=== PATIENT | female | born 1965 | race Caucasian/White ===

== ENCOUNTER 2021-12-26 07:33 | Emergency (ER) | payer OTHER, SELFPAY ==
[2021-12-26 07:44] VITALS: BP 138/88; PULSE 111; RESP 16; TEMP 36.2; O2SAT 95
[2021-12-26 08:14] VITALS: BP 138/88; PULSE 111; RESP 16; TEMP 36.2; O2SAT 95
[2021-12-26 08:36] LABS: SARS-CoV-2 RNA PCR Negative (Negative)
--- NOTE | 2021-12-26 08:48 | ED.URI ---
HPI - URI/Sore Throat General Chief Complaint: Upper Respiratory Infection Stated Complaint: DOESN'T FEEL GOOD SORE THROAT Source: patient and RN notes reviewed Mode of arrival: ambulatory Limitations: no limitations History of Present Illness MD elicited complaint: fever and sore throat Onset (ago): day(s) (3) Consistency: constant Severity: moderate Exacerbating factors: swallowing Relieving factors: nothing Associated symptoms: fever, chills, nausea, vomiting and diarrhea Related Data Home Medications Medication Instructions Recorded Confirmed albuterol sulfate 3 mg CONTINUOUS NEBULIZATION Q1-4H 12/26/21 12/26/21 PRN brimonidine 2 drp EACH EYE DAILY 12/26/21 12/26/21 buspirone 30 mg PO HS 12/26/21 12/26/21 cyclobenzaprine 10 mg PO TID 12/26/21 12/26/21 fluconazole 150 mg PO ONCE 12/26/21 12/26/21 fluoxetine 40 mg PO DAILY 12/26/21 12/26/21 fluticasone propionate [Flovent 2 puff INHALATION BID 12/26/21 12/26/21 HFA] hydrocodone-acetaminophen 1 tablet PO TID 12/26/21 12/26/21 pantoprazole 40 mg PO DAILY 12/26/21 12/26/21 valsartan-hydrochlorothiazide 1 tablet PO DAILY 12/26/21 12/26/21 Allergies Allergy/AdvReac Type Severity Reaction Status Date / Time lisinopril Allergy Cough Verified 12/26/21 07:53 tetracycline Allergy Unknown Verified 12/26/21 07:52 Review of Systems Review of Systems: All systems reviewed & are unremarkable except as noted in HPI and below PMFSH Past Medical History Medical History (Updated 12/26/21 @ 08:53 by Luis Wild MD) Anxiety and depression Asthma Hypertension Social History Social History (Updated 12/26/21 @ 08:53 by Luis Wild MD) Smoking status: Never smoker Alcohol intake: never Substance use: never Exam Const: General: healthy appearing, no acute distress and alert Nutritional Appearance: well nourished and obese morbidly obese Orientation/consciousness: patient oriented x3 HENMT: Head: normal to inspection Ears: hearing grossly normal bilaterally, external ears normal and TM's normal bilaterally General nose exam: Normal external nose present and Normal nares present Face and sinus: normal facial exam Mouth: Yes moist mucous membranes Throat: posterior oropharynx abnormal erythema and exudates Eyes: Conjunctivae: conjunctivae normal Pupils: Equal, round and reactive pupils present EOM: EOMs intact bilaterally Neck: Neck: normal visual inspection and lymphadenopathy bilateral anterior cervical soft, mobile and tender Cardio: Rate: regular rate Rhythm: regular rhythm GI: GI Palp: Yes Soft to palpation and No Tenderness to palpation present (GI) Auscultation: normal bowel sounds Back/Spine/Pelvis: Cervical Spine: cervical ROM normal Thoracic/Lumbar Spine: thoraco-lumbar ROM normal Skin: General skin exam: normal color Rashes: no rashes Neuro: General: patient oriented x3, moves all extremities, no meningeal signs, no focal motor deficits and CN's II-XI intact bilaterally Speech: normal speech Gait exam (Neuro): Normal gait present Extrem: General: normal to inspection and no clubbing, cyanosis or edema Psych: Appearance: grossly normal and well kempt Mental Status: mental status grossly normal Affect: normal affect Attitude: cooperative Thought content: Yes Normal thought content present Course Vital Signs Vital signs: Vital Signs Temperature 36.2 C L 12/26/21 07:44 Pulse Rate 111 H 12/26/21 07:44 Respiratory Rate 16 12/26/21 07:44 Blood Pressure 138/88 12/26/21 07:44 Pulse Oximetry 95 12/26/21 07:44 Temperature 36.2 C L 12/26/21 08:14 Pulse Rate 92 12/26/21 08:55 Respiratory Rate 16 12/26/21 08:55 Blood Pressure 124/80 12/26/21 08:55 Pulse Oximetry 98 12/26/21 08:55 MDM - URI/Sore Throat Lab Data Attestation: I reviewed the patient's lab results. Labs: Lab Results 12/26/21 12/26/21 Range/Units 07:58 07:58 SARS-CoV-2 RNA (RT-PCR) Negative (Negative) Grp A Beta S
[2021-12-26 08:55] VITALS: BP 124/80; PULSE 92; RESP 16; O2SAT 98
== END 2021-12-26 08:55 | disposition home or self-care (01) ==
PROVIDERS: Emergency Provider Emergency Medicine; PCP Family Medicine
DX: J02.0 Streptococcal pharyngitis (principal); Z20.822 Contact with and (suspected) exposure to COVID-19
CPT/HCPCS: 87880; 99283; C9803; U0003; U0005